=== PATIENT | female | born 1995 | race Caucasian/White ===

== ENCOUNTER 2017-12-05 08:17 | Inpatient (IN) | payer OTHER ==
[~2017-12-05] VITALS: Ht 170.2 cm; Wt 78.0 kg
[2017-12-05] MEDS: LACTATED RINGERS 1000ML 1,000 ML IV PRN (09:08)
[2017-12-05 09:10] LABS: MEAN CORPUSCULAR HEMOGLOBIN 30.7 pg (27.0-33.0); MEAN CORPUSCULAR HGB CONC 34.6 g/dL (32.0-36.0); MEAN CORPUSCULAR VOLUME 88.8 fL (79-99); PLATELET COUNT (AUTO) 210 K/uL (130-400); RED BLOOD CELL COUNT(AUTO) 4.05 MIL/uL (4.00-5.50); RED CELL DISTRIBUTION WIDTH 12.7 % (11.0-15.5); WHITE BLOOD COUNT (AUTO) 9.4 K/uL (4.8-10.8)
[2017-12-05 09:13] LABS: APPEARANCE,URINE Clear (CLEAR); BILIRUBIN,URINE Negative (NEGATIVE); COLOR,URINE Yellow (YELLOW); GLUCOSE, URINE (UA) Negative (NEGATIVE); KETONES,URINE Negative (NEGATIVE); LEUKOCYTE ESTERASE ,URINE Small (NEGATIVE); NITRATE,URINE Negative (NEGATIVE); OCCULT BLOOD,URINE Small (NEGATIVE); PH,URINE 6.5 (5.0-8.0); PROTEIN,URINE Negative (NEGATIVE); UROBILINOGEN,URINE 0.2 mg/dL (0.2-1.0)
[2017-12-05] MEDS ORDERED: TERBUTALINE SULFATE VIAL 1MG/ML SQ ONE ×2 (09:30→11:02)
[2017-12-05 09:51] LABS: BACTERIA,URINE Rare /HPF (None Seen); RBC,URINE 0-1 /HPF (0-1); SQUAMOUS EPITHELIAL CELL,UR Moderate /LPF (0-2); WBC,URINE 0-1 /HPF (0-1)
[2017-12-05] MEDS ORDERED: LACTATED RINGERS 1000ML 1,000 ML IV ONE (11:14)
[2017-12-05] MEDS ORDERED: OXYTOCIN 10 USP UNITS/ML ONE (11:15)
[2017-12-05] MEDS ORDERED: OXYTOCIN 10 USP UNITS/ML 20 UNIT in LACTATED RINGERS 1000ML 1,000 ML IV SCH (11:30)
[2017-12-06 06:15] LABS: HEPATITIS Bs ANTIGEN SCREEN P Negative (Negative)
[2017-12-06] MEDS ORDERED: OXYTOCIN 10 USP UNITS/ML ONE ×2 (07:16→15:46)
[2017-12-06] MEDS ORDERED: LACTATED RINGERS 1000ML 1,000 ML IV ONE ×2 (07:16→15:46)
[2017-12-06] MEDS: LACTATED RINGERS 1000ML 1,000 ML IV PRN (10:38)
[2017-12-06] MEDS ORDERED: BUTORPHANOL TARTRATE 2 MG/ML ONE (11:02)
[2017-12-06] MEDS ORDERED: CALDOLOR 800MG+NS 250ML 250 ML IV PRN (13:15)
[2017-12-06] MEDS ORDERED: LACTATED RINGERS 1000ML 1,000 ML IV SCH (13:15)
[2017-12-06] MEDS ORDERED: CEFAZOLIN SODIUM 1 GM VIAL IVP PRN (13:15)
[2017-12-06] MEDS ORDERED: DURAMORPH PF1 MG/ML 10ML AMP IV ONE (13:22)
[2017-12-06] MEDS ORDERED: EPHEDRINE-NS PF 50MG/5ML SYRINGE IV ONE (13:54)
[2017-12-06] MEDS ORDERED: CEFAZOLIN SODIUM 1 GM VIAL IVP ONE (13:55)
[2017-12-06] MEDS ORDERED: DEXAMETHASONE SOD PHOSPHATE 10MG/ML 1ML VIAL ONE (14:06)
[2017-12-06] MEDS ORDERED: OXYTOCIN 10 UNIT/1ML 10ML VIAL ONE (14:06)
[2017-12-06] MEDS ORDERED: ONDANSETRON HCL 4 MG/2 ML VIAL ONE (14:06)
[2017-12-06] MEDS ORDERED: OXYTOCIN-LR 20 UNITS/1000 ML 1,000 ML IV PRN (14:43)
[2017-12-06] MEDS ORDERED: DIPHENHYDRAMINE HCL 25 MG CAPSULE PO PRN (14:45)
[2017-12-06] MEDS ORDERED: BISACODYL 10 MG SUPP.RECT RC PRN (14:45)
[2017-12-06] MEDS ORDERED: ACETAMINOPHEN-CODEINE 300/30MG TAB PO PRN (14:45)
[2017-12-06] MEDS ORDERED: MEPERIDINE-PF 75 MG/ML SYG IM PRN (14:45)
[2017-12-06] MEDS ORDERED: SODIUM CHLORIDE 0.9% 10 ML VIAL IVP PRN (14:45)
[2017-12-06] MEDS ORDERED: DIPH,PERTUSS(ACELL),TET VAC/PF 0.5 ML VIAL IM SCH (14:45)
[2017-12-06] MEDS ORDERED: HYDROCODONE/ACETAMINOPHEN 5/325 MG TAB PO PRN (14:45)
[2017-12-06] MEDS ORDERED: MEASLES/MUMPS/RUBELLA VACCINE, LIVE 0.5 ML/VIAL SQ SCH (14:45)
[2017-12-06] MEDS ORDERED: LANOLIN 30GM OINTMENT TP PRN (14:45)
[2017-12-06] MEDS ORDERED: ACETAMINOPHEN EXTRA STRENGTH 500 MG TABLET PO PRN (14:45)
[2017-12-06 16:04] VITALS: BP 131/88
[2017-12-06] MEDS: HYDROCODONE/ACETAMINOPHEN 5/325 MG TAB PO PRN (18:59)
[2017-12-06 19:36] VITALS: BP 115/55
[2017-12-06] MEDS: CALDOLOR 800MG+NS 250ML 250 ML IV SCH (22:35)
[2017-12-06] MEDS: DEXTROSE 5 %-0.45 % NACL 1,000 ML IV PRN (22:39)
[2017-12-06 23:10] VITALS: BP 118/51
[2017-12-07 03:32] VITALS: BP 104/49
[2017-12-07] MEDS: CALDOLOR 800MG+NS 250ML 250 ML IV SCH (06:23)
[2017-12-07] MEDS: HYDROCODONE/ACETAMINOPHEN 5/325 MG TAB PO PRN ×2 (06:23→13:03)
[2017-12-07] MEDS: DEXTROSE 5 %-0.45 % NACL 1,000 ML IV PRN (06:27)
[2017-12-07 06:59] LABS: HEMATOCRIT 32.1 % (36-48); MEAN CORPUSCULAR HEMOGLOBIN 30.5 pg (27.0-33.0); MEAN CORPUSCULAR HGB CONC 33.8 g/dL (32.0-36.0); MEAN CORPUSCULAR VOLUME 90.1 fL (79-99); PLATELET COUNT (AUTO) 210 K/uL (130-400); RED BLOOD CELL COUNT(AUTO) 3.56 MIL/uL (4.00-5.50); RED CELL DISTRIBUTION WIDTH 12.7 % (11.0-15.5); WHITE BLOOD COUNT (AUTO) 14.4 K/uL (4.8-10.8)
[2017-12-07 07:46] VITALS: BP 121/74
[2017-12-07] MEDS: LIDOCAINE 5% TOPICAL PATCH TP SCH (08:29)
[2017-12-07] MEDS: DOCUSATE SODIUM 100 MG CAP PO SCH ×3 (08:30→21:20)
[2017-12-07] MEDS: SIMETHICONE 80 MG TAB.CHEW PO PRN ×2 (08:30→21:20)
[2017-12-07 11:39] VITALS: BP 115/71
[2017-12-07] MEDS: IBUPROFEN 800 MG TAB PO SCH ×2 (13:02→21:20)
[2017-12-07 15:31] VITALS: BP 120/74
[2017-12-07 19:30] VITALS: BP 116/75
[2017-12-08 00:20] VITALS: BP 119/67
[2017-12-08 04:18] VITALS: BP 131/84
[2017-12-08] MEDS: IBUPROFEN 800 MG TAB PO SCH (04:50)
[2017-12-08 07:55] VITALS: BP 124/81
[2017-12-08] MEDS: DOCUSATE SODIUM 100 MG CAP PO SCH (08:47)
[2017-12-08] MEDS: SIMETHICONE 80 MG TAB.CHEW PO PRN (08:47)
[2017-12-08] MEDS: LIDOCAINE 5% TOPICAL PATCH TP SCH (08:48)
[2017-12-08 11:38] VITALS: BP 139/80
== END 2017-12-08 12:15 | disposition home or self-care (01) | DRG 765 ==
LOC: LDH 08:17 → OBSVTOIN 08:17 → LDH 15:01 → WSH 12-06 16:03
PROVIDERS: ADMIT Obstetrics & Gynecology; ATTEND Obstetrics & Gynecology
PROC: 10D00Z1 Extraction of Products of Conception, Low, Open Approach (ICD-10-PCS; principal; 2017-12-06 14:00)
DX: O76 Abnormality in fetal heart rate and rhythm complicating labor and delivery (principal); D62 Acute posthemorrhagic anemia; O32.1XX0 Maternal care for breech presentation, not applicable or unspecified; O69.81X0 Labor and delivery complicated by cord around neck, without compression, not applicable or unspecified; Z37.0 Single live birth; Z3A.37 37 weeks gestation of pregnancy; Z28.21 Immunization not carried out because of patient refusal
CPT/HCPCS: 36415; 59510; 76815; 81001; 85027; 86592; 86850; 86900; 86901; 87340; A4344; A4606; J0595; J0690; J1100; J1741; J2274; J2405; J2590; J3105; J3490; J7120